=== PATIENT | female | born 1940 | race Caucasian/White ===

== ENCOUNTER → 2017-01-31 | Outpatient (CLI) | payer BC ==
[2015-12-10 11:55] VITALS: BP 137/79
[~2017-01-31] MED LIST: ALLO300T PO; ATEN25TA PO; CELE200C PO; CHOL200044 PO; DIGO250T PO; DILT180C29 PO; FERR-26 PO; FURO80TA3 PO; HYDR-2762 PO; ISOS60TA2 PO; LETR2.5T18 PO; LEVO112T4 PO; MULT1TAB90 PO; NABU500T PO; POTA10TA10 PO; RIVA10TA PO; ROPI0.5T PO; SENN-22 PO; SIMV20TA3 PO; SPIR25TA3 PO; TIOT18CA IH; UBID50TA PO; VITA400C36 PO; WARF-78 PO; ZOLP10TA4 PO; black cherry
--- NOTE | 2017-01-31 18:24 | CARD ---
APPROVED REPORT EXAM: Two-dimensional and M-mode echocardiogram with Doppler and color Doppler. Other Information Quality : Average Rhythm : Atrial Fibrillation INDICATION Dyspnea Atrial Fibrillation Congestive Heart Failure 2D DIMENSIONS RVDd2.8 (2.9-3.5cm)Left Atrium(2D)5.9 (1.6-4.0cm) IVSd1.1 (0.7-1.1cm)Aortic Root(2D)3.5 (2.0-3.7cm) LVDd4.1 (3.9-5.9cm)LVOT Diameter2.1 (1.8-2.4cm) PWd1.1 (0.7-1.1cm)LVDs2.6 (2.5-4.0cm) FS (%) 34.6 %SV50.5 ml LVEF(%)65.0 (>50%) Aortic Valve AoV Peak Moi.156.0cm/sAoV VTI22.6cm AO Peak GR.9.7mmHgLVOT Peak Moi.73.9cm/s LVOT VTI 11.50cmAO Mean GR.6mmHg LOBO (VTI)1.38lj5FZ P 1/2 Ovjn398js Mitral Valve MV E Pyswngui241.5cm/sMV E Peak Gr.129mmHg MV DECEL [id number] A Gfofyzrr441.1cm/s MV E Mean Gr.3mmHgMV JEN24cy E/A Ratio1.0MVA (PHT)4.02cm2 TDI E/Lateral E'11.3E/Medial E'15.3 Pulmonary Valve RVOT VTI11.9cm Tricuspid Valve TR P. Ppxbmgow648vx/sRAP GREKHBKV0xnId TR Peak Gr.63oxKzUZDK02hsZe LEFT VENTRICLE The left ventricle is normal size. There is normal left ventricular wall thickness. Left ventricle sy stolic function is normal. The Ejection Fraction is 65%. There is normal LV segmental wall motion. Un able to assess diastolic function due to a-fib. RIGHT VENTRICLE The right ventricle is normal size. The right ventricular systolic function is normal. ATRIA The left atrium is severely dilated. The right atrium size is normal. The interatrial septum is intac t with no evidence for an atrial septal defect or patent foramen ovale as noted on 2-D or Doppler christie ging. AORTIC VALVE The aortic valve is moderately sclerotic. The aortic valve is trileaflet. The noncoronary cusp does n ot seem to move well but no significant gradient was detected across the valve. Doppler and Color Alejandro w revealed mild aortic regurgitation. There is no significant aortic valvular stenosis by the doppler interrogation. MITRAL VALVE Mitral annular calcification is mild. The mitral valve leaflets are calcified. There is no mitral diaz ve stenosis. Doppler and Color Flow revealed severe mitral regurgitation. TRICUSPID VALVE The tricuspid valve is normal in structure. Doppler and Color Flow revealed moderate tricuspid regurg itation. The PA pressure was estimated at 37 mmHg. There is no tricuspid valve stenosis. PULMONIC VALVE The pulmonic valve is not well visualized. Doppler and Color Flow revealed no pulmonic valvular regur gitation. There is no pulmonic valvular stenosis. GREAT VESSELS The aortic root is normal in size. Pulmonary veins not well visualized. The IVC is normal in size and collapses >50% with inspiration. PERICARDIAL EFFUSION There is no evidence of significant pericardial effusion. Critical Notification Critical Value: No <Conclusion> Left ventricle systolic function is normal. The Ejection Fraction is 65%. The left atrium is severely dilated. The right atrium size is normal. The aortic valve is moderately sclerotic. The aortic valve is trileaflet. The noncoronary cusp does not seem to move well but no significant gr adient was detected across the valve. Doppler and Color Flow revealed mild aortic regurgitation. Doppler and Color Flow revealed severe mitral regurgitation. Mitral annular calcification is mild. The mitral valve leaflets are calcified. The pulmonic valve is not well visualized. There is no evidence of significant pericardial effusion. Doppler and Color Flow revealed moderate tricuspid regurgitation. The PA pressure was estimated at 37 mmHg.
== END | disposition home or self-care (01) ==
LOC: ECHO 08:09
PROVIDERS: ATTEND Internal Medicine Cardiovascular Disease
DX: I08.3 Combined rheumatic disorders of mitral, aortic and tricuspid valves (principal); I50.22 Chronic systolic (congestive) heart failure; R06.02 Shortness of breath; I48.2 Chronic atrial fibrillation
CPT/HCPCS: 93225; 93306

== ENCOUNTER → 2017-02-13 | Outpatient (CLI) | payer BC ==
[2015-12-10 11:55] VITALS: BP 137/79
[~2017-02-13] MED LIST changes: +BLACK CHERRY PO; +BREO ELLIPTA 11 EACH IH; +CHOL10003 PO; +CLON1TAB3 PO; +DIGO125T PO; +DILT240C66 PO; +LEVO137T3 PO; +LINA290C PO; +OMEP20TA PO; -POTA10TA10 PO; +POTA10TA12 PO; +PROAIR RESPICL90 MCG IH; +WARF2TAB7 PO; +WARF5TAB7 PO
--- NOTE | 2017-02-13 11:05 | RAD ---
Abdominal ultrasound, 02/13/2017: History: Abnormal liver function test The gallbladder is surgically absent. There is mild dilatation of the common hepatic duct which measures 11 mm. This is probably secondary to the postcholecystectomy state. No significant intrahepatic bile ductal dilatation is seen. No hepatic mass is evident. The visualized portions of the pancreas, spleen and both kidneys are unremarkable. There is mild aortic calcific plaquing without evidence of aneurysm. The visualized portions of inferior vena cava are unremarkable. No free fluid is evident in the abdomen. IMPRESSION: 1. Mild dilatation of the common hepatic duct is probably secondary to the postcholecystectomy state. Partial distal obstruction cannot be entirely excluded. Correlation with laboratory findings is suggested. 2. The abdominal ultrasound is otherwise unremarkable.
--- NOTE | 2017-02-16 08:50 | RAD ---
DATE: 02/13/2017 EXAM: DIGITAL SCREEN BILAT W/CAD HISTORY: Routine screening COMPARISON: 11/02/2015 This study was interpreted with the benefit of Computerized Aided Detection (CAD). FINDINGS: Breast Density: HETERO The breast parenchyma Is heterogeneously dense, which could reduce sensitivity of mammography. Breast parenchyma level C. There are no dominant suspicious masses, suspicious microcalcifications or evidence of architectural distortion. The bilateral breast parenchyma appears nodular similar to prior exam. Diffuse multiple benign-appearing calcifications identified in the bilateral breasts. IMPRESSION: Benign findings BI-RADS CATEGORY: 2 BENIGN FINDING RECOMMENDED FOLLOW-UP: 12M 12 MONTH FOLLOW-UP PQRS compliance statement: Patient information was entered into a reminder system with a target due date 02/13/2018 for the next mammogram. Mammography is a sensitive method for finding small breast cancers, but it does not detect them all and is not a substitute for careful clinical examination. A negative mammogram does not negate a clinically suspicious finding and should not result in delay in biopsying a clinically suspicious abnormality. "Our facility is accredited by the [employer] Mammography Program."
== END | disposition home or self-care (01) ==
LOC: US 09:38
PROVIDERS: ATTEND Family Medicine
DX: Z12.31 Encounter for screening mammogram for malignant neoplasm of breast (principal); R79.89 Other specified abnormal findings of blood chemistry
CPT/HCPCS: 76700; G0202; 77067

== ENCOUNTER 2017-02-22 11:33 | Inpatient (IN) | payer BC ==
[~2017-02-22] VITALS: Ht 160 cm; Wt 87.1 kg
[~2017-02-22 11:33] MED LIST changes: -BLACK CHERRY PO; -BREO ELLIPTA 11 EACH IH; -CHOL10003 PO; -CLON1TAB3 PO; -DIGO125T PO; -DILT240C66 PO; +HYDROmorphone 2 MG/ML VIAL IV PRN; +IV RINGERS,LACTATED 1000ML 1,000 ML IV SCH; -LEVO137T3 PO; +LIDOCAINE 1% 1 ML SYRINGE. ID PRN; -LINA290C PO; +MORPHINE SULFATE 2 MG/ML DISP.SYRIN. IV PRN; -OMEP20TA PO; +ONDANSETRON PF 4 MG/2 ML VIAL. IV PRN; -PROAIR RESPICL90 MCG IH; +PROCHLORPERAZINE 10 MG/2 ML VIAL. IV PRN; -WARF2TAB7 PO; -WARF5TAB7 PO; +fentaNYL PF VIAL 100 MCG/2 ML VIAL IV PRN
[2017-02-22] MEDS ORDERED: BACITRACIN 50,000 UNIT in IV NORMAL SALINE 250ML 250 ML IRR ONE (12:00)
[2017-02-22 12:03] LABS: HEMATOCRIT 38.5 % (36.0-47.0); HEMOGLOBIN 12.8 g/dL (12.0-15.5); RED BLOOD COUNT 4.24 x10^6/uL (3.50-5.40); RED CELL DISTRIBUTION WIDTH 16.3 % (11.5-14.5); WHITE BLOOD COUNT 6.4 x10^3/uL (4.0-11.0)
[2017-02-22] MEDS ORDERED: DILT240C66 PO (12:07)
[2017-02-22] MEDS ORDERED: DIGO125T PO (12:07)
[2017-02-22] MEDS ORDERED: OMEP20TA PO (12:07)
[2017-02-22] MEDS ORDERED: NABU500T PO (12:07)
[2017-02-22] MEDS ORDERED: LEVO137T3 PO (12:07)
[2017-02-22] MEDS ORDERED: CLON1TAB3 PO (12:11)
[2017-02-22] MEDS ORDERED: BREO ELLIPTA 11 EACH IH (12:11)
[2017-02-22] MEDS ORDERED: CHOL10003 PO (12:11)
[2017-02-22] MEDS ORDERED: BLACK CHERRY PO (12:11)
[2017-02-22] MEDS ORDERED: PROAIR RESPICL90 MCG IH (12:11)
[2017-02-22] MEDS ORDERED: LINA290C PO (12:11)
--- NOTE | 2017-02-22 12:12 | EKG ---
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
[2017-02-22 12:14] LABS: INR 3.1 (0.8-1.1); PROTHROMBIN TIME PATIENT 30.4 SEC (11.7-14.0)
[2017-02-22] MEDS ORDERED: WARF5TAB7 PO (12:15)
[2017-02-22] MEDS ORDERED: WARF2TAB7 PO (12:15)
[2017-02-22 12:18] LABS: CALCIUM 9.8 mg/dL (8.5-10.1); CREATININE 0.9 mg/dL (0.6-1.0)
[2017-02-22] MEDS ORDERED: PROPOFOL 0 ML IV ONE ×2 (13:00→13:05)
[2017-02-22] MEDS ORDERED: PHENYLEPHRINE in 0.9% NACL PF 1 MG/10 ML DISP.SYRIN. IV ONE (13:01)
[2017-02-22] MEDS ORDERED: MIDAZOLAM HCL/PF 2 MG/2 ML VIAL. ONE (13:06)
[2017-02-22 14:03] VITALS: BP 137/76
--- NOTE | 2017-02-22 17:52 | PDOC1 ---
History and Physical Date of Admission Date of Admission DATE: 02/22/17 TIME: 17:48 Identification/Chief Complaint Chief Complaint Lightheadedness Problems: History of Present Illness History of Present Illness This patient is a 76-year-old lady that has been having episodes of near syncope. She gets very lightheaded and almost falls down and almost passes out. Workup was done as an outpatient and included a Holter monitor which showed pauses of up to 2.5 seconds. The patient has chronic atrial fibrillation. She is coming in for insertion of a permanent pacemaker and had stopped the warfarin 4 days ago but her INR is still over 3. Past Medical History Cardiovascular: AFIB, HTN, Hyperlipidemia Musculoskeletal: Osteoarthritis Current Medications Current Medications Current Medications Ondansetron HCl (Zofran) 4 mg PRN Q6HRS PRN IV NAUSEA/VOMITING; Start 02/22/17 at 07:00; Stop 02/23/17 at 06:59 Fentanyl Citrate (Fentanyl 2ml Vial) 25 mcg PRN Q5MIN PRN IV MILD PAIN; Start 02/22/17 at 07:00; Stop 02/23/17 at 06:59 Fentanyl Citrate (Fentanyl 2ml Vial) 50 mcg PRN Q5MIN PRN IV MODERATE PAIN; Start 02/22/17 at 07:00; Stop 02/23/17 at 06:59 Morphine Sulfate 1 mg PRN Q10MIN PRN IV SEVERE PAIN; Start 02/22/17 at 07:00; Stop 02/23/17 at 06:59 Ringer's Solution 1,000 ml @ 0 mls/hr Q0M IV ; Start 02/22/17 at 07:00; Stop at 18:59 Lidocaine HCl 2 ml PRN 1X PRN ID PRIOR TO IV START; Start 02/22/17 at 07:00; Stop 02/23/17 at 06:59 Hydromorphone HCl (Dilaudid) 0.5 mg PRN Q10MIN PRN IV SEV PAIN, Second choice; Start 02/22/17 at 07:00; Stop 02/23/17 at 06:59 Prochlorperazine Edisylate (Compazine) 5 mg PACU PRN PRN IV NAUSEA, MRX1; Start 02/22/17 at 07:00; Stop 02/23/17 at 06:59 Cefazolin Sodium/ Dextrose 50 ml @ 100 mls/hr 1X ONCE IV ; Start 02/22/17 at 12:00; Stop 02/22/17 at 12:29; Status DC Bacitracin 69634 unit/Sodium Chloride 250 ml @ 0 mls/hr 1X ONCE IRR ; Start at 12:00; Stop 02/22/17 at 12:01; Status DC Propofol 0 ml @ As Directed STK-MED ONCE IV ; Start 02/22/17 at 13:00; Stop at 13:01; Status DC Phenylephrine HCl 1 mg STK-MED ONCE IV ; Start 02/22/17 at 13:01; Stop 02/22/17 at 13:02; Status DC Propofol 0 ml @ As Directed STK-MED ONCE IV ; Start 02/22/17 at 13:05; Stop at 13:06; Status DC Midazolam HCl (Versed) 2 mg STK-MED ONCE .ROUTE ; Start 02/22/17 at 13:06; Stop 02/22/17 at 13:07; Status DC Active Scripts Active Reported Warfarin Sodium 2 Mg Tablet 2.5 Mg PO QODAY Warfarin Sodium 5 Mg Tablet 1 Tab PO QOD Breo Ellipta 100-25 Mcg Inh (Fluticasone/Vilanterol) 1 Each Aer.pow.ba 1 Puff IH DAILY Linzess (Linaclotide) 290 Mcg Capsule 290 Mcg PO PRN PRN Proair Respiclick (Albuterol Sulfate) 90 Mcg Aer.pow.ba 1 Puff IH PRN Q6HRS PRN Clonazepam 1 Mg Tablet 1 Tab PO BID PRN [Black Alvarado] 1,000 Mg PO DAILY Vitamin D3 (Cholecalciferol (Vitamin D3)) 1,000 Unit Tablet 1 Tab PO DAILY Nabumetone 500 Mg Tablet 2 Tab PO DAILY Cartia Xt (Diltiazem Hcl) 240 Mg Cap.er.24h 240 Mg PO DAILY Omeprazole 20 Mg Tablet.dr 1 Tab PO DAILY Digoxin 125 Mcg Tablet 1 Tab PO DAILY Levothyroxine Sodium 137 Mcg Tablet 1 Tab PO DAILY Isosorbide Mononitrate Er (Isosorbide Mononitrate) 60 Mg Tab.er.24h PO 30 Days Not given while in hosp. Resume as ordered. Coq10 (Ubidecarenone) 50 Mg Tab.chew 100 Mg PO DAILY Not taken while in hosp. May resume as directed Spiriva (Tiotropium [place]) 18 Mcg Cap.w.dev 1 Cap IH DAILY Not used while in hosp. May resume as ordered Zolpidem Tartrate 10 Mg Tablet 1 Tab PO QHS LAST DOSE GIVEN: DATE:12-09-15 TIME:9:00 p.m. NEXT DOSE DUE: DATE:12-10-15 TIME:9:00 p.m. Simvastatin 20 Mg Tablet 20 Mg PO HS LAST DOSE GIVEN: DATE:12-09-15 TIME:9:00 p.m. NEXT DOSE DUE: DATE:12-10-15 TIME:9:00 p.m. Furosemide 80 Mg Tablet 80 Mg PO DAILY LAST DOSE GIVEN: DATE:12-10-15 TIME:8:30 a.m. NEXT DOSE DUE: DATE: 12-11-15 TIME:8:30 a.m. Allopurinol 300 Mg Tablet 300 Mg PO DAILY LAST DOSE GIVEN: DATE:12-10-15 TIME:8:30 a.m. NEXT DOSE DUE: DATE:12-11-15 TIME:8:30 a.m. Allergies Allergies: Coded Allergies: iodine (Verified Allergy, Intermediate, Rash, 08/06/15) Physical Exam General: Alert, Oriented X3, Cooperative HEENT: Atraumatic, PERRLA Lungs: Clear to auscultation Heart: irregularly irregular, other (S1 and S2, 1 to 2/6 systolic murmur.) Abdomen: Normal bowel sounds, Soft Rectal Exam: not examined PELVIC: Examination not indicated Extremities: No edema Vitals Vitals Vital Signs Date Time Temp Pulse Resp B/P (MAP) Pulse Ox O2 Delivery O2 Flow Rate FiO2 02/22/17 14:03 97.4 80 15 137/76 (96) 94 Room Air 97.4 Labs Labs Laboratory Tests Test 02/22/17 11:55 White Blood Count 6.4 x10^3/uL (4.0-11.0) Red Blood Count 4.24 x10^6/uL (3.50-5.40) Hemoglobin 12.8 g/dL (12.0-15.5) Hematocrit 38.5 % (36.0-47.0) Mean Corpuscular Volume 91 fL (79-100) Mean Corpuscular Hemoglobin 30 pg (25-35) Mean Corpuscular Hemoglobin Concent 33 g/dL (31-37) Red Cell Distribution Width 16.3 % (11.5-14.5) Platelet Count 217 x10^3/uL (140-400) Prothrombin Time 30.4 SEC (11.7-14.0) Prothromb Time International Ratio 3.1 (0.8-1.1) Activated Partial Thromboplast Time 53 SEC (24-38) Sodium Level 143 mmol/L (136-145) Potassium Level 3.0 mmol/L (3.5-5.1) Chloride Level 102 mmol/L (98-107) Carbon Dioxide Level 34 mmol/L (21-32) Anion Gap 7 (6-14) Blood Urea Nitrogen 13 mg/dL (7-20) Creatinine 0.9 mg/dL (0.6-1.0) Estimated GFR (Cockcroft-Gault) 61.0 Glucose Level 99 mg/dL (70-99) Calcium Level 9.8 mg/dL (8.5-10.1) Laboratory Tests Test 02/22/17 11:55 White Blood Count 6.4 x10^3/uL (4.0-11.0) Red Blood Count 4.24 x10^6/uL (3.50-5.40) Hemoglobin 12.8 g/dL (12.0-15.5) Hematocrit 38.5 % (36.0-47.0) Mean Corpuscular Volume 91 fL (79-100) Mean Corpuscular Hemoglobin 30 pg (25-35) Mean Corpuscular Hemoglobin Concent 33 g/dL (31-37) Red Cell Distribution Width 16.3 % (11.5-14.5) Platelet Count 217 x10^3/uL (140-400) Prothrombin Time 30.4 SEC (11.7-14.0) Prothromb Time International Ratio 3.1 (0.8-1.1) Activated Partial Thromboplast Time 53 SEC (24-38) Sodium Level 143 mmol/L (136-145) Potassium Level 3.0 mmol/L (3.5-5.1) Chloride Level 102 mmol/L (98-107) Carbon Dioxide Level 34 mmol/L (21-32) Anion Gap 7 (6-14) Blood Urea Nitrogen 13 mg/dL (7-20) Creatinine 0.9 mg/dL (0.6-1.0) Estimated GFR (Cockcroft-Gault) 61.0 Glucose Level 99 mg/dL (70-99) Calcium Level 9.8 mg/dL (8.5-10.1) VTE Prophylaxis Ordered VTE Prophylaxis Devices: Yes VTE Pharmacological Prophylaxi: No Assessment/Plan Assessment/Plan The patient comes in with chronic atrial fibrillation and near syncope secondary to bradycardia with pauses of up to 2.5 seconds. She needs to have a permanent pacemaker but her INR is still prolonged therefore we're going to keep the patient in and give her fresh frozen plasma and if the INR is better do the pacemaker insertion tomorrow. ARLYN SCANLON MD February 22, 2017 17:52
[2017-02-22 19:59] VITALS: BP 148/80
[2017-02-22] MEDS ORDERED: clonazePAM 1 MG TABLET PO PRN (22:45)
[2017-02-22] MEDS ORDERED: NON FORMULARY ITEM (Albuterol Sulfate (Proair Respiclick) 1 PUFF) IH PRN (22:45)
[2017-02-22] MEDS ORDERED: ZOLPIDEM 5 MG TABLET. PO PRN (23:00)
[2017-02-22] MEDS ORDERED: ALBUTEROL SULFATE 2.5 MG/3 ML NEBU. NEB PRN (23:00)
[2017-02-22 23:14] VITALS: BP 115/61
[2017-02-22] MEDS ORDERED: ROPI0.5T PO (23:48)
[2017-02-22] MEDS: ZOLPIDEM 5 MG TABLET. PO SCH (23:53)
[2017-02-22] MEDS: ATORVASTATIN CALCIUM 10 MG TABLET. PO SCH (23:53)
[2017-02-23] VITALS (22 sets, daily range): BP systolic 113–181; BP diastolic 61–80
[2017-02-23] MEDS: rOPINIRole 0.25 MG TABLET. PO SCH ×2 (00:23→20:47)
[2017-02-23 04:57] LABS: INR 1.9 (0.8-1.1)
[2017-02-23] MEDS: LEVOTHYROXINE 137 MCG TABLET PO SCH (06:38)
[2017-02-23 07:24] LABS: CALCIUM 9.3 mg/dL (8.5-10.1); CREATININE 0.9 mg/dL (0.6-1.0)
[2017-02-23 07:27] LABS: POTASSIUM 2.8 mmol/L (3.5-5.1)
[2017-02-23] MEDS ORDERED: POTASSIUM CHLORIDE 20 MEQ TABLET.ER. PO ONE (08:00)
[2017-02-23] MEDS: BUDESONIDE 0.5 MG/2 ML NEBU. NEB SCH ×2 (08:11→20:20)
[2017-02-23] MEDS: IPRATRPIUM/ALBUTEROL 0.5/2.5MG 3 ML NEBU. NEB SCH ×4 (08:11→20:19)
[2017-02-23] MEDS: CHOLECALCIFEROL (VITAMIN D3) 1,000 UNIT TABLET PO SCH (08:26)
[2017-02-23] MEDS: ALLOPURINOL 300 MG TABLET. PO SCH (08:26)
[2017-02-23] MEDS: PANTOPRAZOLE 40 MG TABLET.DR. PO SCH (08:26)
[2017-02-23] MEDS: DIGOXIN 125 MCG TABLET. PO SCH (08:45)
[2017-02-23] MEDS: MELOXICAM 7.5 MG TABLET PO SCH (09:00)
[2017-02-23] MEDS ORDERED: NON FORMULARY ITEM (Fluticasone/Vilanterol (Breo Ellipta 100-25 Mcg Inh) 1 PUFF) IH SCH (09:00)
[2017-02-23] MEDS ORDERED: NON FORMULARY ITEM (Tiotropium Bromide (Spiriva) 1 CAP) IH SCH (09:00)
[2017-02-23] MEDS ORDERED: ISOSORBIDE MONONITRATE ER 30 MG TAB.ER.24H PO SCH (09:00)
[2017-02-23] MEDS ORDERED: NON FORMULARY ITEM (Ubidecarenone (Coq10) 100 MG) PO SCH (09:00)
[2017-02-23] MEDS: FUROSEMIDE 80 MG TABLET. PO SCH (09:00)
--- NOTE | 2017-02-23 11:32 | ACF ---
Admission Forms Criteria ATRIAL FIBRILLATION Clinical Indications for Admission to Inpatient Care (Place 'X' for any and all applicable criteria): Admission indicated for ANY ONE of the following(1)(2)(3)(4)(5) : [ ]I. Myocardial ischemia [ ]II. Dyspnea or hypoxemia [ ]III. Hemodynamic instability [ ]IV. Heart failure (e.g., pulmonary edema) (7) [ ]V. New-onset (less than 48 hours) atrial fibrillation with high risk for causing complications secondary to comorbidities (eg, symptomatic heart failure ) [ ]. Altered mental status [X]VII. Syncope [ ]VIII. Patient has implantable cardioverter defibrillator that has fired more than once within past 24hr or needs immediate adjustment of settings that cannot be done other than in inpatient setting. (8) [ ]IX. Suspected accessory pathway (e.g., Fdpnz-Kolqpbtdt-Mwtui syndrome) on ECG [ ]X. Recent systemic thromboembolism (eg, stroke) [ ]XI. Medication toxicity (e.g., digitalis) causing arrhythmia(9) [ ]XII. Underlying medical condition that necessitates inpatient care (e.g., thyrotoxicosis, pneumonia) (10) [ ]XIII. Continuous ECG monitoring is required for condition causing arrhythmia (e.g., severe hyperkalemia, hypokalemia, acid-base disturbance).(11)(12)(13) [ ]XIV. Initiation of antiarrhythmic drug therapy is needed in patient at high risk of adverse effects as indicated by ANY ONE of the following: [ ]a) Significant structural heart disease (e.g., reduced ejection fraction, congenital heart disease, valvular heart disease) [ ]b) Prolonged QT interval [ ]c) Underlying sinus node or atrioventricular conduction disturbances [ ]d) Need for treatment with antiarrhythmic drugs that have significant proarrhythmic potential (e.g., dofetilide, sotalol, procainamide) [ ]e) Patient whose sinus rhythm has never been observed on ECG [ ]XV. Intolerable symptoms despite optimal outpatient treatment [ ]XVI. Elective or urgent cardioversion that cannot be performed on outpatient basis or during observation care. [A] (Use also Atrial Fibrillation: Observation Care ) as appropriate.(14) [ ]XVII.Contraindications and/or Inappropriate clinical situations for Observational Care in patients with Atrial Fibrillation, when ANY ONE of the following is required: [ ]a) Patient with High risk of cardiac embolism (e.g, patients with previous cardiac embolism, LVEF < 40%, age >75 and patients with prosthetic valve) 18 [ ]b) Patient with Moderate risk including DM patient, CAD and patient aged 65-75 18 [ ]c) Patient with any change in cardiac biomarker especially troponin should be managed as high risk in an inpatient setting 19 [ ]d) Physician judgement irrespective of ECG and other diagnostic findings 20 [ ]XVIII.General contraindications and/or Inappropriate clinical situations for Observational Care in patients with Atrial Fibrillation, when ANY ONE of the following is required: [ ]a) Prediction of prolongation of LOS based on ANY ONE of the following may be considered as a contraindication for observational care 2, 3, 4, 5, 6, 7, 8, 9, 10, 11 [ ]i) Age > 65 yrs. [ ]ii) Patient arriving by ambulance [ ]iii) Patient with high acuity [ ]iv) Patient requiring vital sign monitoring [ ]v) Patient on IV medication [ ]b) Systolic blood pressures 180mmHg 3,12 [ ]c) Patient with altered mental status including delirium and other alteration of consciousness3 [ ]d) Patient whose discharge disposition will be to a longterm home or rehabilitation home should not be managed in Emergency Department Observation Unit. CMS rule requires 3 days hospital stay before such placement.3,13 [ ]e) Patient with failure to thrive due to broad array of etiologies 3,16,17 [ ]f) Inability to ambulate 3,14 Extended stay beyond goal length of stay may be needed for (1)(25)(26): [ ]a) Unstable comorbidities [ ]b) Persistently uncontrolled atrial fibrillation or other arrhythmias [ ]c) Acute thromboembolic event (e.g., stroke, limb ischemia) [ ]d) Need for inpatient attainment of full anticoagulation The original [employer] content created by [employer] has been revised. The portions of the content which have been revised are identified through the use of italic text or in bold, and [facility] has neither reviewed nor approved the modified material. All other unmodified content is copyright [employer]. Please see references footnoted in the original [facility] edition 2016 Admission Criteria Met?: Yes DANIELE ESQUIVEL February 23, 2017 11:32
[2017-02-23 12:12] LABS: INR 1.6 (0.8-1.1); PROTHROMBIN TIME PATIENT 18.3 SEC (11.7-14.0)
--- NOTE | 2017-02-23 13:32 | PDOC ---
MODERATE SEDATION ASSESSMENT RISKS/ALTERNATIVES Risks/Alternatives Risks and alternatives of this type of sedation and procedure discussed with: RISK/ALTERNATIVES: Patient H & P ON CHART H & P H & P on chart and reviewed for co-morbid conditions and appropriate labs. H&P ON CHART: Yes STATUS PREG STATUS ASSESSED: Yes MEDS/ALLERGIES REVIEWED Meds/Allergies Reviewed Medications and Allergies including time and route of recently administered narcotics and sedatives. MEDS/ALLERGIES REVIEWED: Yes ASA RATING ASA RATING: II AIRWAY ASSESSMENT Airway Assessment Airway patency, oral function limitations, presence of caps, crowns, dentures, partials, and ability to extend neck assessed. AIRWAY ASSESSMENT: Yes MALLAMPATI SCORE MALLAMPATI SCORE: II PRE-SEDATION ASSESSMENT PRE-SEDATION ASSESSMENT: Yes ARLYN SCANLON MD February 23, 2017 13:32
[2017-02-23] MEDS ORDERED: LIDOCAINE 2%/EPI 1:100,000 20 ML VIAL. ONE (13:38)
[2017-02-23] MEDS ORDERED: MIDAZOLAM HCL/PF 5 MG/5 ML VIAL. ONE (13:47)
[2017-02-23] MEDS ORDERED: fentaNYL PF VIAL 250 MCG/5 ML VIAL ONE (13:47)
[2017-02-23] MEDS ORDERED: MIDAZOLAM HCL/PF 5 MG/5 ML VIAL. IV ONE (14:00)
[2017-02-23] MEDS ORDERED: LIDOCAINE 2%/EPI 1:100,000 20 ML VIAL. IJ ONE (14:00)
[2017-02-23] MEDS ORDERED: fentaNYL PF VIAL 250 MCG/5 ML VIAL IV ONE (14:00)
--- NOTE | 2017-02-23 16:46 | PDOC4 ---
PROCEDURE Procedure PROCEDURE NOTE Procedure: Insertion of single chamber permanent pacemaker Preoperative diagnosis: Chronic atrial fibrillation bradycardia near-syncope and syncope Postoperative diagnosis: Same Procedure note: After obtaining informed consent the patient was taken to the Cleaning Staff Supervisor. The left shoulder area was prepped and draped in the usual fashion. The area was infiltrated with Xylocaine to obtain topical anesthesia. The skin was incised. Bleeders were cauterized. A pocket was created with blunt dissection. The left subclavian vein was approached with Seldinger technique and a peel- away sheath. Through that sheath a pacing lead, [employer] Edgardo, was advanced all the way to the RA then across the tricuspid valve into the RV. Once I was satisfied with its position and the active-fixation device was deployed we checked thresholds and found him to be normal. The lead was then sutured in place. He was then connected to the pacing generator. This was an MRI compatible [employer] Edgardo pacing generator The pocket was irrigated with antibiotic solution and then the pocket was closed with 3 layers of running suture. The skin edges were approximated with Dermabond. After the Dermabond was dry a dressing was applied to the area. The patient was then transferred to her room in satisfactory condition after tolerating the procedure rather well ARLYN SCANLON MD February 23, 2017 16:45
[2017-02-23] MEDS ORDERED: NO ANTICOAGULANT THERAPY. MC PRN (17:15)
--- NOTE | 2017-02-23 17:44 | RAD ---
PORTABLE CHEST 1V History: Post pacemaker Comparison: 11/22/2015. Findings: There is now single lead left electronic cardiac device with lead tip closer to the ventricular apex. No pneumothorax is identified. Pericardial cardiac silhouette is somewhat enlarged although stable. There is no significant dependent pleural fluid or lobar consolidation. Impression: 1. There is a single lead left electronic cardiac device, no pneumothorax identified. There is unchanged enlargement of the pericardial cardiac silhouette. Electronically signed by: Ryan Weaver MD (02/23/2017 5:41 PM)
[2017-02-23] MEDS ORDERED: ACETAMINOPHEN 500 MG TABLET PO PRN (19:30)
[2017-02-23] MEDS: ZOLPIDEM 5 MG TABLET. PO SCH (20:47)
[2017-02-23] MEDS: ATORVASTATIN CALCIUM 10 MG TABLET. PO SCH (20:47)
[2017-02-23] MEDS ORDERED: ATORVASTATIN CALCIUM 10 MG TABLET. PO SCH (21:00)
[2017-02-24 03:30] VITALS: BP 162/74
[2017-02-24 05:49] LABS: CALCIUM 9.4 mg/dL (8.5-10.1); CREATININE 0.9 mg/dL (0.6-1.0); POTASSIUM 3.5 mmol/L (3.5-5.1)
[2017-02-24] MEDS: LEVOTHYROXINE 137 MCG TABLET PO SCH (06:22)
[2017-02-24] MEDS ORDERED: LINACLOTIDE 145 MCG CAPSULE. PO SCH (07:00)
[2017-02-24 07:30] VITALS: BP 138/73
--- NOTE | 2017-02-24 08:11 | RAD ---
EXAM: Chest, 2 views. HISTORY: Pacemaker placement. COMPARISON: 02/23/2017. FINDINGS: Frontal and lateral views of the chest are obtained. There is a single lead left cardiac pacemaker with the tip in the right ventricle. There is no pneumothorax. There is stable blunting of the costophrenic angles due to bilateral lower lobe atelectasis or pleural proximal scarring. There is no significant effusion. The cardiac silhouette is upper normal in size. IMPRESSION: 1. Single lead left cardiac pacemaker in expected position. 2. Stable bilateral lower lobe atelectasis or scarring. 3. Stable upper normal size of the cardiac silhouette.
[2017-02-24] MEDS: BUDESONIDE 0.5 MG/2 ML NEBU. NEB SCH (08:31)
[2017-02-24] MEDS: IPRATRPIUM/ALBUTEROL 0.5/2.5MG 3 ML NEBU. NEB SCH ×2 (08:31→12:08)
[2017-02-24] MEDS ORDERED: ISOSORBIDE MONONITRATE ER 60 MG TAB.ER.24H. PO SCH (09:00)
[2017-02-24] MEDS: MELOXICAM 7.5 MG TABLET PO SCH (09:07)
[2017-02-24] MEDS: PANTOPRAZOLE 40 MG TABLET.DR. PO SCH (09:08)
[2017-02-24] MEDS: CHOLECALCIFEROL (VITAMIN D3) 1,000 UNIT TABLET PO SCH (09:08)
[2017-02-24] MEDS: FUROSEMIDE 80 MG TABLET. PO SCH (09:08)
[2017-02-24] MEDS: ALLOPURINOL 300 MG TABLET. PO SCH (09:08)
[2017-02-24] MEDS: DIGOXIN 125 MCG TABLET. PO SCH (09:08)
[2017-02-24 10:06] LABS: INR 1.6 (0.8-1.1); PROTHROMBIN TIME PATIENT 17.8 SEC (11.7-14.0)
[2017-02-24 10:33] VITALS: BP 146/65
[2017-02-24] MEDS ORDERED: WARFARIN 7.5 MG TABLET. PO ONE (13:30)
--- NOTE | 2017-02-24 14:35 | CARD ---
APPROVED REPORT PROCEDURES Insertion Single Chamber Ventricle Pacemaker INDICATIONS This patient is a 76-year-old lady with a history of atrial fibrillation that has been having episode s of syncope and near syncope. She was found to be having bradycardia with pauses up to 2.5 seconds. The patient is coming in for insertion of a permanent pacemaker. After obtaining informed consent the patient was taken into the Roll Inspector. Routine monitoring and antibiotics were given as per protocol. The left shoulder area was prepped and draped in the usual fashion. The area was infiltrated with Xyl ocaine to obtain topical anesthesia. The skin was incised. With blunt dissection I then worked my way down to the fascia and then a pocket was created. Bleeders were cauterized. Then using Seldinger technique a peel-away sheath was inserted into the left subclavian vein through this a [employer] Edgardo lead was advanced all the way to the right atrium and then across the tricuspid valve into the right ventricle once he was in his satisfactory position and the active-fixation device had been deployed we checked the function of the leads and verified that we had normal impedance sensing and pacing. Once I was satisfied with the results the lead was sutured in place after the peel-away sheath was re moved and a [employer] Edgardo MRI compatible pacemaker generator was connected to the lead. The connections an d function were verified and found to be satisfactory. The pocket was then irrigated with antibiotic solution. The generator was then placed in the pocket and the pocket was closed with 3 layers of running suture . The skin edges were approximated with Dermabond and after the Dermabond was dry a dressing was applie d to the area and the patient was returned to her room in satisfactory condition after tolerating the procedure rather well. CONCLUSION This was the insertion of a single chamber MRI compatible [employer] Edgadro pacemaker.
--- NOTE | 2017-02-24 14:58 | PDOC3 ---
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 Procedures Insertion of single chamber permanent pacemaker Brief Hospital Course This patient is a 76-year-old lady that has been having episodes of near syncope with lightheadedness as well as some episodes of syncope. She has a known history of chronic atrial fibrillation and when a workup was done as an outpatient she was found to be having pauses of up to 2.5 seconds. The patient has been on warfarin for some time and this was stopped 4 days before coming in. The patient came in for insertion of a permanent pacemaker but was found to have a prolonged INR above 3 therefore I felt that it was not safe to proceed to attempt to insert the pacemaker at that point and the patient was admitted to be given fresh frozen plasma to reverse the warfarin. The patient received 3 units of fresh frozen plasma and the INR decreased. Yesterday with the lower INR the patient was taken to the [id number] and is single chamber permanent pacemaker [employer] MRI compatible pacemaker was inserted. The patient tolerated the procedure rather well and had no complications. Today the patient is doing well and the pacemaker appears to be functioning normally. In view of that he was decided to discharge the patient home today. I have discussed with the patient with regards to diet activity medications as well as follow-up. I'm going to reinitiate the warfarin today with a dose of 7-1/2 mg and then tomorrow she can resume her normal doses. We will need to check a PT/INR next week. The patient is to come to see me in the office for an incision check. I have answered all of the patient's family's questions as well as the questions from the patient. May go home today in stable condition. Disposition/Orders: D/C to Home Scheduled Allopurinol (Allopurinol), 300 MG PO DAILY, (Reported) Cholecalciferol (Vitamin D3) (Vitamin D3), 1 TAB PO DAILY, (Reported) Digoxin (Digoxin), 1 TAB PO DAILY, (Reported) Diltiazem Hcl (Cartia Xt), 240 MG PO DAILY, (Reported) Fluticasone/Vilanterol (Breo Ellipta 100-25 Mcg Inh), 1 PUFF IH DAILY, (Reported ) Furosemide (Furosemide), 80 MG PO DAILY, (Reported) Levothyroxine Sodium (Levothyroxine Sodium), 1 TAB PO DAILY, (Reported) Nabumetone (Nabumetone), 2 TAB PO DAILY, (Reported) Omeprazole (Omeprazole), 1 TAB PO DAILY, (Reported) Ropinirole Hcl (Requip), 1 TAB PO QHS, (Reported) Simvastatin (Simvastatin), 20 MG PO HS, (Reported) Tiotropium [place] (Spiriva), 1 CAP IH DAILY, (Reported) Ubidecarenone (Coq10), 100 MG PO DAILY, (Reported) Warfarin Sodium (Warfarin Sodium), 1 TAB PO qod, (Reported) Warfarin Sodium (Warfarin Sodium), 2.5 MG PO QODAY, (Reported) Zolpidem Tartrate (Zolpidem Tartrate), 1 TAB PO QHS, (Reported) [Black [place]], 1,000 MG PO DAILY, (Reported) Scheduled PRN Albuterol Sulfate (Proair Respiclick), 1 PUFF IH PRN Q6HRS PRN for SHORTNESS OF BREATH, (Reported) Clonazepam (Clonazepam), 1 TAB PO BID PRN for ANXIETY / AGITATION, (Reported) Linaclotide (Linzess), 290 MCG PO PRN PRN for CONSTIPATION, (Reported) Miscellaneous Medications Isosorbide Mononitrate (Isosorbide Mononitrate Er), PO, (Reported) Discontinued Medications Digoxin (Digoxin), 250 MCG PO DAILY, (Reported) Discontinued Reason: Prescription changed Letrozole (Femara), 2.5 MG PO DAILY, (Reported) Levothyroxine Sodium (Levothyroxine Sodium), 112 MCG PO DAILYAC, (Reported) Discontinued Reason: Prescription changed Potassium Chloride (Potassium Chloride), 10 MEQ PO DAILY, (Reported) Ropinirole Hcl (Requip), 0.5 MG PO HS, (Reported) Vitamin E Mixed (Vitamin E), 400 UNIT PO DAILY, (Reported) Time Spent Total time spent with patient [] minutes for coordination of care, counseling, and education. ARLYN SCANLON MD February 24, 2017 14:58
== END 2017-02-24 14:30 | disposition home or self-care (01) | DRG 243 ==
LOC: CCL 11:33 → OBSVTOIN 11:50 → 2 SOUTH 11:50
PROVIDERS: ADMIT Internal Medicine Cardiovascular Disease; ATTEND Internal Medicine Cardiovascular Disease
PROC: 30233L1 Transfusion of Nonautologous Fresh Plasma into Peripheral Vein, Percutaneous Approach (ICD-10-PCS; principal; 2017-02-22)
PROC: 30233R1 Transfusion of Nonautologous Platelets into Peripheral Vein, Percutaneous Approach (ICD-10-PCS; 2017-02-22)
PROC: 30233K1 Transfusion of Nonautologous Frozen Plasma into Peripheral Vein, Percutaneous Approach (ICD-10-PCS; 2017-02-22)
PROC: 0JH604Z Insertion of Pacemaker, Single Chamber into Chest Subcutaneous Tissue and Fascia, Open Approach (ICD-10-PCS; 2017-02-23)
PROC: 5A09357 Assistance with Respiratory Ventilation, Less than 24 Consecutive Hours, Continuous Positive Airway Pressure (ICD-10-PCS; 2017-02-23)
PROC: 02HK3JZ Insertion of Pacemaker Lead into Right Ventricle, Percutaneous Approach (ICD-10-PCS; 2017-02-23)
DX: R00.1 Bradycardia, unspecified (principal); D68.8 Other specified coagulation defects; I48.2 Chronic atrial fibrillation; I10 Essential (primary) hypertension; T50.905A Adverse effect of unspecified drugs, medicaments and biological substances, initial encounter; F41.9 Anxiety disorder, unspecified; E78.5 Hyperlipidemia, unspecified; R55 Syncope and collapse; M19.90 Unspecified osteoarthritis, unspecified site; Z91.048 Other nonmedicinal substance allergy status; Z79.899 Other long term (current) drug therapy; Z79.2 Long term (current) use of antibiotics; Z79.1 Long term (current) use of non-steroidal anti-inflammatories (NSAID)
CPT/HCPCS: 33207; 36415; 71010; 71020; 80048; 85027; 85610; 85730; 86850; 86900; 86901; 86927; 93005; 94250; 94640; 94760; C1786; C1892; C1898; J0690; J2250; J2370; J2704; J3010; J3490; J7050; J7620; P9017; J7030

== ENCOUNTER 2017-04-12 11:22 | Emergency (ER) | payer BC ==
[~2017-04-12] VITALS: Ht 160 cm; Wt 85.3 kg
[~2017-04-12 11:22] MED LIST changes: +BLACK CHERRY PO; +BREO ELLIPTA 11 EACH IH; +CHOL10003 PO; +CLON1TAB3 PO; +DIGO125T PO; +DILT240C66 PO; -HYDROmorphone 2 MG/ML VIAL IV PRN; -IV RINGERS,LACTATED 1000ML 1,000 ML IV SCH; +LEVO137T3 PO; -LIDOCAINE 1% 1 ML SYRINGE. ID PRN; +LINA290C PO; -MORPHINE SULFATE 2 MG/ML DISP.SYRIN. IV PRN; +OMEP20TA8 PO; -ONDANSETRON PF 4 MG/2 ML VIAL. IV PRN; +PROAIR RESPICL90 MCG IH; -PROCHLORPERAZINE 10 MG/2 ML VIAL. IV PRN; +WARF2TAB7 PO; +WARF5TAB7 PO; -fentaNYL PF VIAL 100 MCG/2 ML VIAL IV PRN
[2017-04-12 11:56] LABS: BASO # 0.1 x10^3/uL (0.0-0.2); BASO % 1 % (0-3); EOS % 1 % (0-3); HEMATOCRIT 33.8 % (36.0-47.0); HEMOGLOBIN 11.3 g/dL (12.0-15.5); LYMPH # 2.2 x10^3/uL (1.0-4.8); LYMPH % 28 % (24-48); MEAN CORPUSCULAR HEMOGLOBIN 31 pg (25-35); MEAN CORPUSCULAR HGB CONC 33 g/dL (31-37); MEAN CORPUSCULAR VOLUME 91 fL (79-100); MONO % 8 % (0-9); NEUT % 62 % (31-73); PLATELET COUNT 212 x10^3/uL (140-400); RED CELL DISTRIBUTION WIDTH 15.4 % (11.5-14.5)
[2017-04-12] MEDS ORDERED: ACETAMINOPHEN 500 MG TABLET PO ONE (12:00)
[2017-04-12 12:03] LABS: CALCIUM 8.8 mg/dL (8.5-10.1); CREATININE 1.1 mg/dL (0.6-1.0); GFR 48.3; POTASSIUM 3.4 mmol/L (3.5-5.1)
[2017-04-12 12:08] LABS: ALBUMIN 3.6 g/dL (3.4-5.0); PROTHROMBIN TIME PATIENT 55.5 SEC (11.7-14.0); TOTAL PROTEIN 8.3 g/dL (6.4-8.2)
[2017-04-12 12:09] LABS: ALBUMIN/GLOBULIN RATIO 0.8 (1.0-1.7); TOTAL BILIRUBIN 0.8 mg/dL (0.2-1.0)
[2017-04-12 12:18] LABS: INR 6.9 (0.8-1.1)
--- NOTE | 2017-04-12 12:59 | ED.ADGEN ---
Past Medical History Past Medical History: A-Fib, High Cholesterol, Hypertension Additional Past Medical Histor: gout, thyroid disease, breast cancer Past Surgical History: Cholecystectomy, Knee Replacement, Pacemaker Additional Past Surgical Histo: carpal tunnel, L breast lumpectomy Alcohol Use: None Drug Use: None Adult General Chief Complaint Chief Complaint: ABNORMAL LABS HPI HPI Patient is a 77 year old with history of A. fib currently on Coumadin who presents with abnormal lab and left foot pain. Patient states she was labs drawn earlier today and was told she has an INR of 8.0. Denies change in medications. Patient also reports left foot pain, swelling without injury. History of gout. Patient denies chest pain, shortness breath, palpitations, leg pain or swelling. No other acute symptoms or complaints. Patient's PCP is Dr. Plummer. Review of Systems Review of Systems ROS as per HPI. Current Medications Current Medications Current Medications Medications (Trade) Dose Ordered Sig/Jae Start Time Stop Time Status Last Admin Dose Admin Acetaminophen (Tylenol) 1,000 mg 1X ONCE 04/12/17 12:00 04/12/17 12:01 DC 04/12/17 12:24 1,000 MG Allergies Allergies Allergies Coded Allergies Type Severity Reaction Last Updated Verified iodine Allergy Intermediate Rash 08/06/15 Yes Physical Exam Physical Exam Constitutional: Well developed, well nourished, no acute distress, non-toxic appearance. HENT: Normocephalic, atraumatic, bilateral external ears normal, oropharynx moist, no oral exudates, nose normal. Eyes: PERRLA, EOMI, conjunctiva normal. Neck: Normal range of motion. Cardiovascular:Heart rate regular rhythm. Lungs & Thorax: Bilateral breath sounds clear to auscultation. Abdomen: Bowel sounds normal, soft, no tenderness. Skin: Warm, dry. Back: No tenderness. Extremities: Left foot swelling, no erythema, deformity, bruising with diffuse ankle and foot pain. Neurologic: Alert and oriented X 3, normal motor function, normal sensory function. Psychologic: Affect normal, judgement normal, mood normal. Current Patient Data Vital Signs Vital Signs Date Time Temp Pulse Resp B/P (MAP) Pulse Ox O2 Delivery O2 Flow Rate FiO2 04/12/17 13:00 84 30 134/74 (94) 93 Room Air 04/12/17 11:46 98.2 98.2 Lab Values Laboratory Tests Test 04/12/17 11:45 White Blood Count 8.0 x10^3/uL (4.0-11.0) Red Blood Count 3.70 x10^6/uL (3.50-5.40) Hemoglobin 11.3 g/dL (12.0-15.5) L Hematocrit 33.8 % (36.0-47.0) L Mean Corpuscular Volume 91 fL (79-100) Mean Corpuscular Hemoglobin 31 pg (25-35) Mean Corpuscular Hemoglobin Concent 33 g/dL (31-37) Red Cell Distribution Width 15.4 % (11.5-14.5) H Platelet Count 212 x10^3/uL (140-400) Neutrophils (%) (Auto) 62 % (31-73) Lymphocytes (%) (Auto) 28 % (24-48) Monocytes (%) (Auto) 8 % (0-9) Eosinophils (%) (Auto) 1 % (0-3) Basophils (%) (Auto) 1 % (0-3) Neutrophils # (Auto) 5.0 x10^3uL (1.8-7.7) Lymphocytes # (Auto) 2.2 x10^3/uL (1.0-4.8) Monocytes # (Auto) 0.7 x10^3/uL (0.0-1.1) Eosinophils # (Auto) 0.1 x10^3/uL (0.0-0.7) Basophils # (Auto) 0.1 x10^3/uL (0.0-0.2) Prothrombin Time 55.5 SEC (11.7-14.0) H Prothrombin Time INR 6.9 (0.8-1.1) *H Sodium Level 143 mmol/L (136-145) Potassium Level 3.4 mmol/L (3.5-5.1) L Chloride Level 102 mmol/L (98-107) Carbon Dioxide Level 35 mmol/L (21-32) H Anion Gap 6 (6-14) Blood Urea Nitrogen 17 mg/dL (7-20) Creatinine 1.1 mg/dL (0.6-1.0) H Estimated GFR (Cockcroft-Gault) 48.3 BUN/Creatinine Ratio 15 (6-20) Glucose Level 123 mg/dL (70-99) H Uric Acid 4.5 mg/dL (2.6-6.0) Calcium Level 8.8 mg/dL (8.5-10.1) Total Bilirubin 0.8 mg/dL (0.2-1.0) Aspartate Amino Transferase (AST) 23 U/L (15-37) Alanine Aminotransferase (ALT) 19 U/L (14-59) Alkaline Phosphatase 118 U/L (46-116) H Total Protein 8.3 g/dL (6.4-8.2) H Albumin 3.6 g/dL (3.4-5.0) Albumin/Globulin Ratio 0.8 (1.0-1.7) L Laboratory Tests 04/12/17 11:45 Laboratory Tests 04/12/17 11:45 EKG EKG [] Radiology/Procedures Radiology/Procedures [] Course & Med Decision Making Course & Med Decision Making Pertinent Labs and Imaging studies reviewed. (See chart for details) [Case reviewed with Dr. Plummer. Recommendations are to dc home, hold coumadin for 2 days with office follow up. Patient verbalized understanding and agreement. Return precautions reviewed. ] Dragon Disclaimer Dragon Disclaimer This electronic medical record was generated, in whole or in part, using a voice recognition dictation system. FAY PIEDRA DO Apr 12, 2017 12:59
[2017-04-12 13:00] VITALS: BP 134/74
== END 2017-04-12 13:36 | disposition home or self-care (01) ==
LOC: ER 11:22
DX: M79.672 Pain in left foot (principal); D68.9 Coagulation defect, unspecified; M79.89 Other specified soft tissue disorders; E78.00 Pure hypercholesterolemia, unspecified; I48.91 Unspecified atrial fibrillation; I10 Essential (primary) hypertension; M10.9 Gout, unspecified; Z85.3 Personal history of malignant neoplasm of breast; Z95.0 Presence of cardiac pacemaker; Z96.89 Presence of other specified functional implants; Z90.49 Acquired absence of other specified parts of digestive tract; Z96.659 Presence of unspecified artificial knee joint; Z79.01 Long term (current) use of anticoagulants; Z91.041 Radiographic dye allergy status
CPT/HCPCS: 36415; 80053; 84550; 85027; 85610; 99284